=== PATIENT | female | born 1940 ===

== ENCOUNTER 2022-01-27 07:30 | Inpatient (IN) | payer OTHER ==
[~2022-01-27] VITALS: Ht 154.9 cm; Wt 63.5 kg
[2022-01-27] MEDS ORDERED: COZAAR100 MG PO (09:16)
[2022-01-27] MEDS ORDERED: TENORMIN100 M1 PO ×2 (09:16→09:18)
[2022-01-27] MEDS ORDERED: SINEMET PO (09:18)
[2022-01-27] MEDS ORDERED: PROCARDIA PO (09:19)
[2022-01-27] MEDS ORDERED: LEVOTHYROXINE25 MCG PO (09:19)
[2022-01-27] MEDS ORDERED: ZOCOR PO (09:19)
[2022-01-31] MEDS ORDERED: ZOCOR20 MG PO (14:08)
[2022-01-31] MEDS ORDERED: CARBIDOPA-LEVO1 EA12 (14:08)
[2022-01-31] MEDS ORDERED: ALLERGY RELIE15.8 ML (14:09)
[2022-01-31] MEDS ORDERED: ALEVE220 MG (14:09)
[2022-01-31] MEDS ORDERED: GAS RELIEF125 M1 (14:09)
[2022-01-31] MEDS ORDERED: TRIPLE ANTIBI28.4 G3 (14:10)
[2022-01-31] MEDS ORDERED: NIFEDIPINE ER30 M1 (14:11)
[2022-01-31] MEDS ORDERED: SIMVASTATIN10 MG (14:12)
[2022-01-31] MEDS ORDERED: VITAMIN E180 M1 (14:12)
[2022-01-31] MEDS ORDERED: ST. JOSEPH ASPI81 M2 (14:12)
[2022-02-02] MEDS ORDERED: INTEGRA PLUS C1 EACH PO (18:04)
[2022-02-02] MEDS ORDERED: XARELTO10 MG PO (18:04)
[2022-02-02] MEDS ORDERED: OXYC1TAB9 PO (18:04)
[2022-02-02] MEDS ORDERED: BACTRIM DS TAB1 EACH PO (18:04)
== END 2022-02-02 17:57 | disposition home or self-care (01) | DRG 470 ==
LOC: SURH 01-31 07:30 → OB/GYN 01-31 07:30 → SURG 01-31 10:16 → O/R 01-31 10:16 → SURH 01-31 12:30 → SURG 01-31 15:12
PROVIDERS: ADMIT Orthopaedic Surgery Sports Medicine; ATTEND Orthopaedic Surgery Sports Medicine
PROC: 0SRD0J9 Replacement of Left Knee Joint with Synthetic Substitute, Cemented, Open Approach (ICD-10-PCS; principal; 2022-01-31 12:30)
DX: M17.12 Unilateral primary osteoarthritis, left knee (principal); I10 Essential (primary) hypertension; E03.8 Other specified hypothyroidism; G20 Parkinson's disease; Z20.822 Contact with and (suspected) exposure to COVID-19